=== PATIENT | female | born 1965 | race Caucasian/White ===

== ENCOUNTER 2017-08-08 11:22 | Emergency (ER) | payer OTHER, MEDICAID ==
[~2017-08-08] VITALS: Ht 165.1 cm; Wt 111.1 kg
[~2017-08-08 11:22] MED LIST: ALDACTONE50 MG; CELEXA 20 MG TA20 M1 PO; CLONAZEPAM PO; COREG25 MG PO; CYMBALTA60 MG PO; DULOXETINE HCL60 MG PO; FLEXERIL PO; HYDROXYZINE HCL25 M1 PO; IBUPROFEN 800800 M1; IBUPROFEN 800800 M1 PO; IBUPROFEN 800800 MG PO; MAXZIDE-25 MG1 EACH PO; MOBIC7.5 MG PO; NORCO 5-325 TA1 EACH PO; PENICILLIN V P500 MG PO; POTASSIUM SUPP; PREDNISONE 20 M20 MG PO; PROAIR HFA8.5 GM INH; SPIRONOLACTONE50 MG; TRANSDERM-SCO1 PATC1 TD; TRIAMTERENE-HC1 EAC3; ULTRAM 50MG TAB50 MG PO; VITAMIN D1000 UNI1; ZANAFLEX4 MG PO; ZESTORETIC 20-1 EAC1 PO; [UNRECOGNIZED DRUG - OTHER]
[2017-08-08] MEDS ORDERED: NAPROSYN500 MG PO (12:49)
[2017-08-08] MEDS ORDERED: HYDROCODONE-AP1 EAC6 PO (12:49)
[2017-08-08 13:15] VITALS: BP 144/82
== END 2017-08-08 13:28 | disposition home or self-care (01) ==
LOC: M.ERS 11:22
DX: R51 Headache (principal); M54.2 Cervicalgia; M54.5 Low back pain; I10 Essential (primary) hypertension; G89.29 Other chronic pain; F17.210 Nicotine dependence, cigarettes, uncomplicated; Z98.890 Other specified postprocedural states; Z91.040 Latex allergy status

== ENCOUNTER 2018-08-20 20:38 | Emergency (ER) | payer OTHER, MEDICAID ==
[~2018-08-20] VITALS: Ht 165.1 cm; Wt 143.1 kg
[~2018-08-20 20:38] MED LIST changes: +HYDROCODONE-AP1 EAC6 PO; +NAPROSYN500 MG PO
[2018-08-20 21:13] LABS: ABSOLUTE EOSINOPHILS 0.3 thou/uL (0.0-0.7); ABSOLUTE LYMPHOCYTES 2.1 thou/uL (0.8-5.3); ABSOLUTE MONOCYTES 0.6 thou/uL (0.0-1.2); ABSOLUTE NEUTROPHILS 4.3 thou/uL (1.6-8.1); BASOPHILS 0.6 %; EOSINOPHILS 4.2 %; HEMATOCRIT 40.9 % (37.0-47.0); HEMOGLOBIN 13.8 gm/dL (12.0-15.0); LYMPHOCYTES 28.3 %; MCH 31.4 pg (26.0-34.0); MCHC 33.6 g/dL (28.0-37.0); MCV 93.3 fL (80.0-100.0); MONOCYTES 8.2 %; MPV 7.5 fl. (7.2-11.1); NUCLEATED RBCS 0 /100WBC; PLATELET COUNT* 250 thou/uL (150-400); POLYS 58.7 %; RBC 4.38 mil/uL (4.20-5.00); RDW-CV 12.9 % (10.5-14.5); WBC 7.3 thou/uL (4.0-11.0)
[2018-08-20 21:24] LABS: APTT 29.4 Seconds (25.0-31.3); CALCIUM 9.1 mg/dL (8.5-10.1); CREATININE 1.1 mg/dL (0.6-1.3); POTASSIUM 3.5 mmol/L (3.5-5.1); PROTIME 10.7 Seconds (9.20-11.50)
[2018-08-20 21:28] LABS: ALBUMIN 3.7 g/dL (3.4-5.0); TOTAL BILIRUBIN 0.5 mg/dL (<0.1-1.0)
[2018-08-20 21:55] LABS: URINE BILIRUBIN NEGATIVE (Negative); URINE BLOOD NEGATIVE (Negative); URINE CLARITY CLEAR; URINE COLOR YELLOW; URINE GLUCOSE-RANDOM NEGATIVE (Negative); URINE KETONES NEGATIVE (Negative); URINE LEUKOCYTES-REFLEX NEGATIVE (Negative); URINE NITRITE-REFLEX NEGATIVE (Negative); URINE PROTEIN NEGATIVE (Negative); URINE SPECIFIC GRAVITY 1.025 (1.005-1.030); URINE UROBILINOGEN 0.2 E.U./dl (0.2-1.0)
[2018-08-20] MEDS ORDERED: VENTOLIN HFA 1818 GM INH (22:03)
[2018-08-20] MEDS ORDERED: ZESTORETIC 20-1 EAC2 PO (22:03)
[2018-08-20] MEDS ORDERED: ZPAK PO (22:03)
[2018-08-20] MEDS ORDERED: TESSALON PERLE100 MG PO (22:03)
[2018-08-20] MEDS ORDERED: PREDNISONE50 MG PO (22:03)
[2018-08-20] MEDS ORDERED: COREG25 MG PO (22:03)
[2018-08-20 22:16] VITALS: BP 141/76
--- NOTE | 2018-08-21 09:36 | EKG ---
[place] [address] ELECTROCARDIOGRAM REPORT Name: UMESH YANES Room: [facility]#: [id number] Admission: 08/20/18 Attend Phys: Discharge: 08/20/18 Date of : 63 Report #: [id number] THIS REPORT FOR: //name// [facility] ED Test Date: 2018-08-20 Test Time: 20:55:16 Pat Name: UMESH YANES Department: Room: Gender: F [employer] Winder: JALIL : 1965 Requested By: Nahomy Mcknight Order Number: [id number] MD: Lucas Majano Measurements Intervals [place] Rate: 67 P: 51 IN: 188 QRS: 16 QRSD: 104 T: 38 QT: 409 QTc: 432 Interpretive Statements Sinus rhythm Borderline T abnormalities, anterior leads Compared to ECG 04/07/2007 11:30:14 no change Electronically Signed On 08-21-2018 9:36:24 [employer] by Lucas Majano [email or web address] <ELECTRONICALLY SIGNED> By: Lucas Majano MD, [facility] 08/21/18 0936 54 54 Lucas Majano MD, FACC /EPI
== END 2018-08-20 22:19 | disposition home or self-care (01) ==
LOC: M.ERS 20:38
PROVIDERS: Nurse Practitioner Family
DX: J18.9 Pneumonia, unspecified organism (principal); I10 Essential (primary) hypertension; Z76.0 Encounter for issue of repeat prescription; F17.210 Nicotine dependence, cigarettes, uncomplicated; M54.9 Dorsalgia, unspecified; G89.29 Other chronic pain; Z91.040 Latex allergy status; Z98.890 Other specified postprocedural states

== ENCOUNTER 2019-10-07 19:22 | Emergency (ER) | payer OTHER, MEDICAID ==
[~2019-10-07] VITALS: Ht 165.1 cm; Wt 133.8 kg
[~2019-10-07 19:22] MED LIST changes: +LASIX 20 MG TAB20 MG PO; +LIPITOR40 MG PO; +NEURONTIN 300300 M1 PO; +PREDNISONE50 MG PO; +TESSALON PERLE100 MG PO; +TOVIAZ4 M1 PO; +VENTOLIN HFA 1818 GM INH; +VOLTAREN GEL 1100 G1 TOP; +ZESTORETIC 20-1 EAC2 PO; +ZPAK PO
[2019-10-07 20:34] LABS: INFLUENZA A ANTIGEN Negative (Negative); INFLUENZA B ANTIGEN Negative (Negative)
[2019-10-07] MEDS ORDERED: PREDNISONE 10 M10 M1 PO (21:18)
[2019-10-07] MEDS ORDERED: DICLOFENAC SOD50 M1 PO (21:18)
[2019-10-07] MEDS ORDERED: VENTOLIN HFA INH8 GM INH (21:18)
[2019-10-07 21:42] VITALS: BP 130/70
--- NOTE | 2019-10-08 10:40 | EKG ---
[place] [address] ELECTROCARDIOGRAM REPORT Name: UMESH YANES Room: [facility]#: [id number] Admission: 10/07/19 Attend Phys: Discharge: 10/07/19 Date of : 63 Date of Service: 10/07/192005 Report #: [id number] THIS REPORT FOR: //name// [facility] ED Test Date: 2019-10-07 Test Time: 20:06:35 Pat Name: UMESH YANES Department: Room: Gender: F Fire Boss: [facility] : 1965 Requested By: Lashawn Hopper Order Number: [id number] MD: Lucas Majano Measurements Intervals [place] Rate: 79 P: 50 [place]: 183 QRS: 23 QRSD: 101 T: 60 QT: 382 QTc: 438 Interpretive Statements Sinus rhythm Abnormal T, consider ischemia, anterior leads Compared to ECG 08/20/2018 20:55:16 T-wave abnormality still present Electronically Signed On 10-08-2019 10:39:33 CDT by Lucas Majano [email or web address] <ELECTRONICALLY SIGNED> By: Lucas Majano MD, FACC 10/08/19 1039 05 05 Lucas Majano MD, [facility] /EPI
== END 2019-10-07 21:43 | disposition home or self-care (01) ==
LOC: M.ERS 19:22
PROVIDERS: Nurse Practitioner
DX: B34.9 Viral infection, unspecified (principal); G89.29 Other chronic pain; I10 Essential (primary) hypertension; F17.210 Nicotine dependence, cigarettes, uncomplicated; Z91.040 Latex allergy status; Z98.890 Other specified postprocedural states

== ENCOUNTER 2020-08-26 16:06 | Inpatient (IN) | payer OTHER, MEDICAID ==
[~2020-08-26] VITALS: Ht 165.1 cm; Wt 150.5 kg
[~2020-08-26 16:06] MED LIST changes: +DICLOFENAC SOD50 M1 PO; -NEURONTIN 300300 M1 PO; +NEURONTIN 300M300 M2 PO; +PREDNISONE 10 M10 M1 PO; +VENTOLIN HFA INH8 GM INH
[2020-08-26 16:07] VITALS: BP 116/71
[2020-08-26 16:40] LABS: ABSOLUTE BASOPHILS 0.1 thou/uL (0.0-0.2); ABSOLUTE EOSINOPHILS 0.1 thou/uL (0.0-0.7); ABSOLUTE LYMPHOCYTES 1.4 thou/uL (0.8-5.3); ABSOLUTE MONOCYTES 0.7 thou/uL (0.0-1.2); ABSOLUTE NEUTROPHILS 8.9 thou/uL (1.6-8.1); BASOPHILS 0.5 %; EOSINOPHILS 0.7 %; HEMATOCRIT 43.4 % (37.0-47.0); HEMOGLOBIN 14.4 gm/dL (12.0-15.0); LYMPHOCYTES 12.6 %; MCH 30.2 pg (26.0-34.0); MCHC 33.1 g/dL (28.0-37.0); MCV 91.1 fL (80.0-100.0); MONOCYTES 6.2 %; MPV 7.2 fl. (7.2-11.1); NUCLEATED RBCS 0 /100WBC; PLATELET COUNT* 264 thou/uL (150-400); RBC 4.76 mil/uL (4.20-5.00); RDW-CV 13.7 % (10.5-14.5); WBC 11.1 thou/uL (4.0-11.0)
[2020-08-26 16:54] LABS: APTT 27.3 Seconds (25.0-31.3); PROTIME 10.6 Seconds (9.20-11.50)
[2020-08-26 17:01] LABS: CALCIUM 8.8 mg/dL (8.5-10.1); POTASSIUM 3.8 mmol/L (3.5-5.1)
[2020-08-26 17:05] LABS: ALBUMIN 3.4 g/dL (3.4-5.0); TOTAL BILIRUBIN 0.4 mg/dL (<0.1-1.0); TOTAL PROTEIN 7.1 g/dL (6.4-8.2)
[2020-08-26 18:16] VITALS: BP 141/90
[2020-08-26 18:42] VITALS: BP 143/81
[2020-08-26] MEDS ORDERED: CARVEDILOL25 MG PO (18:59)
[2020-08-26] MEDS ORDERED: TIZANIDINE HCL4 M1 PO (18:59)
[2020-08-26] MEDS ORDERED: LISINOPRIL-HCT1 EAC2 PO (19:00)
[2020-08-26] MEDS ORDERED: MOBIC7.5 MG PO (19:01)
[2020-08-26] MEDS ORDERED: CYMBALTA30 MG PO (19:02)
[2020-08-26] MEDS ORDERED: NEURONTIN300 MG PO (19:02)
[2020-08-26] MEDS ORDERED: LASIX 20 MG TAB20 MG PO (19:03)
[2020-08-26] MEDS ORDERED: LIPITOR40 MG PO (19:03)
[2020-08-26] MEDS ORDERED: TOVIAZ4 M1 PO (19:03)
[2020-08-26] MEDS ORDERED: SPIRONOLACTONE25 MG PO (19:04)
[2020-08-26 19:15] VITALS: BP 106/85
[2020-08-27 01:02] VITALS: BP 95/49
[2020-08-27 05:15] LABS: HEMATOCRIT 41.4 % (37.0-47.0); HEMOGLOBIN 13.6 gm/dL (12.0-15.0); MCHC 32.7 g/dL (28.0-37.0); MCV 91.6 fL (80.0-100.0); RBC 4.52 mil/uL (4.20-5.00); RDW-CV 13.8 % (10.5-14.5); WBC 11.1 thou/uL (4.0-11.0)
[2020-08-27 05:17] LABS: CALCIUM 9.1 mg/dL (8.5-10.1); POTASSIUM 3.9 mmol/L (3.5-5.1)
[2020-08-27 05:52] VITALS: BP 100/55
[2020-08-27 07:42] VITALS: BP 124/75
[2020-08-27 11:30] VITALS: BP 146/73
--- NOTE | 2020-08-27 12:45 | CON ---
[address] [address] CONSULTATION Name: UMESH YANES Room: [address] IN .R.#: [id number] Admission: 08/26/20 Attend Phys: Michelle Yeh MD Discharge: Date of : 63 Report #: [id number] THIS REPORT FOR: cc: Stephenie AGUERO A DO ~ Biggs, F. Douglas MD [facility] CARDIOLOGY CONSULTATION HISTORY OF PRESENT ILLNESS: I was asked by Dr. Yeh to see this 55-year-old white female in cardiology consultation for evaluation and treatment of paroxysmal supraventricular tachycardia with chest pain and troponin elevation. This lady has been having episodes of tachycardia associated with substernal chest pain for 3 months. She stopped taking her beta-brandon 3 months ago. She was on carvedilol 25 mg b.i.d. for her blood pressure. She finally had a very severe episode yesterday starting at 11:00 a.m. and finally came to the Emergency Room around 4:00 p.m. The pain lasted that length of time. She did get adenosine for her paroxysmal supraventricular tachycardia given by EMS in the ambulance. It broke her promptly. She has not had any further PSVT. Her chest discomfort was substernal. It was a 9 on a scale of 10. It was a pressure or tightness. It radiated to both her left and right shoulders. There was associated shortness of breath, nausea and diaphoresis. It was worse with activity she said, but not necessarily better at rest. It did occur at rest. She apparently says it was relieved by nitroglycerin, but I do not know that she got nitro. There was no relationship to food. She does have chronic dyspnea on exertion, orthopnea, PND and edema and shortness of breath. She has had some syncopal episodes typically when she is standing up, walking. She is on lisinopril and hydrochlorothiazide and I suspect she has orthostatic hypotension from that. Additionally, she is on spironolactone. So, she may need her medications adjusted to something that does not cause as much orthostasis. Something like amlodipine may be better for her than lisinopril. She does have chronic dyspnea on exertion, orthopnea and PND as previously mentioned. Coronary risk factors include past history of smoking. She does have hypercholesterolemia. She is on a statin, but she has not been taking it. She denies diabetes. She does have the high blood pressure. There is a strong family history of coronary artery disease. She does not have renal disease. She does not have peripheral vascular disease as far as she knows. She does have pain in her legs when she walks; however, but is not clearly claudication. She is quite obese. MEDICATIONS: Atorvastatin 40 mg daily, carvedilol 25 mg b.i.d., Cymbalta 30 mg b.i.d., Toviaz 4 mg daily, Lasix 20 mg t.i.d., Neurontin 300 mg t.i.d., lisinopril/hydrochlorothiazide 20/25 one daily, meloxicam 7.5 mg daily, spironolactone 25 mg daily and tizanidine 4 mg q.i.d. ALLERGIES: HER ONLY ALLERGY IS LATEX ALLERGY. SHE HAS [place] [address] CONSULTATION Name: UMESH YANES Room: [address] IN [facility].#: [id number] Admission: 08/26/20 Attend Phys: Michelle Yeh MD Discharge: Date of : 63 Report #: [id number] FAMILY HISTORY: Extremely positive, mother, father, sister, all had heart attacks and from them, did have several grandparents also. REVIEW OF SYSTEMS: Positive for wheezing, palpitations, chest pain, shortness of breath with exercise, seasonal allergies, latex allergy, depression, anxiety, arthritis, wearing glasses, loss of vision and decreased hearing in the left ear. Otherwise, review of systems is negative for some 35 different complaints of 14 different system categories including central nervous system, general, respiratory, cardiovascular, endocrine, gastrointestinal, hematologic, lymphatic, allergic, immunologic, psychiatric, musculoskeletal, skin, eyes, ears, nose, mouth and throat. Please see review of systems form for details and negatives in review of systems. SOCIAL HISTORY: She is . She does not smoke, drink or use illegal drugs. PHYSICAL EXAMINATION: GENERAL: She presents as a well-developed, obese woman. She is 5 feet 5 and approximately 300 pounds. VITAL SIGNS: Her pulse was 73, respirations 18, temperature 97.1, blood pressure was 100/55. HEENT: Her head is atraumatic. Eyes clear. NECK: Supple. There is no jugular venous distention or hepatojugular reflux. Thyroid is not enlarged. There is no adenopathy. SKIN: Warm and dry. Mucous membranes are moist. LUNGS: Clear to auscultation and percussion. CARDIOVASCULAR: Heart revealed normal first and second heart sound. There is a soft S4. There is no S3. There are no murmurs, rubs, thrills, heaves or gallops. PMI is nondisplaced. ABDOMEN: Soft, flat and nontender. No palpable masses or organomegaly. EXTREMITIES: Reveal no cyanosis, clubbing or edema. NEUROLOGIC: The patient was mentating normally, talking normally, moved all extremities normally. DIAGNOSTIC DATA: Her EKG shows normal sinus rhythm, left atrial enlargement and borderline T-wave abnormality that is post PSVT. I reviewed the PSVT strips and it does show PSVT converting to sinus rhythm with the adenosine. LABORATORY DATA: Chest x-ray was negative. Troponins were as follows: Initially 0.46, subsequently 1.01 and then another one about 5 hours after the first one was 1.94. Another one is pending. NT-proBNP was only 248. IMPRESSION: [place] [address] CONSULTATION Name: UMESH YANES SAW Room: [address] IN [facility]#: [id number] Admission: 08/26/20 Attend Phys: Michelle Yeh MD Discharge: Date of : 63 Report #: [id number] 1. Paroxysmal supraventricular tachycardia. 2. Chest pain that is likely ischemic pain. 3. Essential hypertension. 4. Hypercholesterolemia. 5. Elevated troponin, possible small ohn-SX-advitee elevation myocardial infarction. RECOMMENDATIONS: She should have a nuclear stress test and echo. Please see my orders. Thank you very much for asking me to see the patient. If there are any questions, please feel free to contact me. <ELECTRONICALLY SIGNED> By: Adan Griffith MD, [facility] 08/27/20 1245 1031 [id number]. Dane Griffith MD, [facility] /nt
[2020-08-27 16:00] VITALS: BP 121/73
[2020-08-27 20:00] VITALS: BP 135/74
[2020-08-28] VITALS: BP 134/75
[2020-08-28 04:00] VITALS: BP 136/78
[2020-08-28 04:47] LABS: HEMATOCRIT 41.9 % (37.0-47.0); HEMOGLOBIN 13.9 gm/dL (12.0-15.0); MCH 30.3 pg (26.0-34.0); MCHC 33.1 g/dL (28.0-37.0); MCV 91.5 fL (80.0-100.0); MPV 7.6 fl. (7.2-11.1); RBC 4.58 mil/uL (4.20-5.00); RDW-CV 13.5 % (10.5-14.5); WBC 9.5 thou/uL (4.0-11.0)
[2020-08-28 05:11] LABS: CHOLESTEROL 147 mg/dL (<200); HDL CHOLESTEROL 43 mg/dL (>40); LDL CHOLESTEROL 91 mg/dL (<100); TC:HDL 3.4 Ratio (Not establshd); TRIGLYCERIDE 69 mg/dL (<150); VLDL 14 mg/dL (<40)
[2020-08-28 05:19] LABS: SERUM ASSESSMENT Clear
[2020-08-28 05:24] LABS: CALCIUM 9.1 mg/dL (8.5-10.1); CREATININE 0.9 mg/dL (0.6-1.3); POTASSIUM 3.9 mmol/L (3.5-5.1)
[2020-08-28 08:00] VITALS: BP 141/75
[2020-08-28 16:00] VITALS: BP 108/61
--- NOTE | 2020-08-28 16:47 | 2DMMODE ---
[place] [address] 2 D/M-MODE ECHOCARDIOGRAM Name: UMESH YANES Room: [address] IN .R.#: [id number] Admission: 08/26/20 Attend Phys: Michelle Yeh MD Discharge: Date of : 63 Date of Service: 08/28/20 1647 Report #: [id number] THIS REPORT FOR: cc: Stephenie AGUERO A DO Holkins,Ankur Glover MD [facility] ~ APPROVED REPORT Study performed: 08/28/2020 10:24:15 EXAM: Comprehensive 2D, Doppler, and color-flow Echocardiogram Patient Location: In-Patient BSA: 2.43 HR: 74 bpm BP: 136/78 mmHg Other Information Study Quality: Fair Indications Chest Pain 2D Dimensions IVSd: 12.45 (7-11mm) LVOT Diam: 20.65 (18-24mm) LVDd: 46.62 mm PWd: 11.95 (7-11mm) Ascending Ao: 32.40 (22-36mm) LVDs: 26.26 (25-40mm) Aortic Root: 27.43 mm Volumes Left Atrial Volume (Systole) LA ESV Index: 10.40 mL/m2 Aortic Valve AoV Peak Tang.: 1.82 m/s AO Peak Gr.: 13.27 mmHg LVOT Max P.64 mmHg AO Mean Gr.: 7.13 mmHg LVOT Mean P.47 mmHg LVOT Max V: 1.08 m/s AO V2 VTI: 34.14 cm LVOT Mean V: 0.73 m/s TAMMIE (VTI): 2.04 cm2 LVOT V1 VTI: 20.83 cm Mitral Valve E/A Ratio: 0.71 [place] [address] 2 D/M-MODE ECHOCARDIOGRAM Name: UMESH YANES Room: [address] IN ..#: [id number] Admission: 08/26/20 Attend Phys: Michelle Yeh MD Discharge: Date of : 63 Date of Service: 08/28/20 1647 Report #: [id number] MV Decel. Time: 341.87 ms MV E Max Tang.: 0.35 m/s MV PHT: 99.14 ms MVA (PHT): 2.22 cm2 TDI E/Lateral E': 3.89 E/Medial E': 3.18 Medial E' Tang.: 0.11 m/s Lateral E' Tang.: 0.09 m/s Pulmonary Valve PV Peak Tang.: 0.97 m/s PV Peak Gr.: 3.80 mmHg Left Ventricle The left ventricle is normal size. There is normal LV segmental wall motion. Borderline concentric left ventricular hypertrophy. Left ventricular systolic function is normal. The left ventricular ejection fraction is within the normal range. LVEF is 55-60%. Grade I - abnormal relaxation pattern. Right Ventricle The right ventricle is normal size. The right ventricular systolic function is normal. Atria The left atrium size is normal. The right atrium size is normal. Aortic Valve The aortic valve is normal in structure. No aortic regurgitation is present. There is no aortic valvular stenosis. Mitral Valve The mitral valve is normal in structure. There is no mitral valve regurgitation noted. No evidence of mitral valve stenosis. Tricuspid Valve The tricuspid valve is normal in structure. There is no tricuspid valve regurgitation noted. Pulmonic Valve The pulmonary valve is normal in structure. There is no pulmonic valvular regurgitation. Great Vessels The aortic root is normal in size. IVC is [place] [address] 2 D/M-MODE ECHOCARDIOGRAM Name: UMESH YANES Room: [address] IN [facility]#: [id number] Admission: 08/26/20 Attend Phys: Michelle Yeh MD Discharge: Date of : 63 Date of Service: 08/28/20 1647 Report #: [id number] collapses >50% with inspiration. Pericardium There is no pericardial effusion. <Conclusion> The left ventricle is normal size. Borderline concentric left ventricular hypertrophy. Left ventricular systolic function is normal. The left ventricular ejection fraction is within the normal range. LVEF is 55-60%. Grade I - abnormal relaxation pattern. The right ventricle is normal size. The left atrium size is normal. The aortic valve is normal in structure. The mitral valve is normal in structure. The tricuspid valve is normal in structure. IVC is normal in size and collapses >50% with inspiration. There is no pericardial effusion. There is normal LV segmental wall motion. <ELECTRONICALLY SIGNED> By: Ankur Capps MD, FACC 08/28/20 164 164 46 Ankur Capps MD, FACC /INF
--- NOTE | 2020-08-28 17:01 | EKG ---
[place] [address] ELECTROCARDIOGRAM REPORT Name: UMESH YANES Room: [address] ADM IN ..#: [id number] Admission: 08/26/20 Attend Phys: Michelle Yeh MD Discharge: Date of : 63 Date of Service: 08/26/20 [facility]2 Report #: [id number] THIS REPORT FOR: //name// [facility] ED Test Date: 2020-08-26 Test Time: 16:12:27 Pat Name: UMESH YANES Department: Room: [facility] Gender: F C Python Developer: LAINEY : 1965 Requested By: Stas Barrientos Order Number: [id number] MD: Ankur Capps Measurements Intervals [place] Rate: 91 P: 62 [place]: 179 QRS: 39 QRSD: 100 T: 53 QT: 349 QTc: 430 Interpretive Statements Sinus rhythm Probable left atrial enlargement Borderline repolarization abnormality Compared to ECG 10/07/2019 20:06:35 T-wave abnormality no longer present Possible ischemia no longer present Electronically Signed On 08-28-2020 17:01:05 HIDE SALTER by Ankur Capps [email or web address] <ELECTRONICALLY SIGNED> By: Ankur Capps MD, [facility] 08/28/20 1701 1612 1612 Ankur Capps MD, [facility] /EPI
[2020-08-28 20:00] VITALS: BP 116/71
[2020-08-29] VITALS: BP 141/95
[2020-08-29 04:00] VITALS: BP 149/93
[2020-08-29 04:34] LABS: HEMOGLOBIN 14.6 gm/dL (12.0-15.0); MCH 30.5 pg (26.0-34.0); MCV 89.9 fL (80.0-100.0); MPV 7.8 fl. (7.2-11.1); RBC 4.78 mil/uL (4.20-5.00); RDW-CV 13.7 % (10.5-14.5); WBC 10.4 thou/uL (4.0-11.0)
[2020-08-29 05:19] LABS: CALCIUM 9.7 mg/dL (8.5-10.1); POTASSIUM 3.7 mmol/L (3.5-5.1); TROPONIN-I LEVEL 0.26 ng/mL (<0.06)
[2020-08-29 08:00] VITALS: BP 126/79
[2020-08-29 12:00] VITALS: BP 98/62
[2020-08-29] MEDS ORDERED: ASPIR 8181 MG PO (12:20)
--- NOTE | 2020-08-29 18:47 | CARDNUC ---
[place] [address] CARDIAC NUCLEAR IMAGING REPORT Name: UMESH YANES Room: [address] IN [facility]#: [id number] Admission: 08/26/20 Attend Phys: Michelle Yeh MD Discharge: Date of : 63 Date of Service: 08/29/20 1847 Report #: [id number] THIS REPORT FOR: cc: Stephenie AGUERO A DO Biggs, F. Douglas MD [facility] ~ APPROVED REPORT Study performed: 08/27/2020 11:04:00 Indication: Chest pain, Dyspnea, elevated troponin, PSVT. Patient Location: In-Patient Room #: 215 Stress Tech: Jud Arnold Stress Nurse: Precious Juan RN Ht: 5 ft 5 in Wt: 326 lbs BSA: 2.43 m2 HR: 72 bpm BP: 139/74 mmHg BMI: 54.24 Rhythm: NSR Medical History Medical History: Chest pain radiate to left and right shoulders, dyspnea, PSVT, elevated troponins, [place], nausea, diaphoresis, palpitations, orthopnea, PND, LE edema, HX syncope, lightheadedness/dizziness, unbalanced gait, HTN, HLD, past smoker, obesity, ringing in ears bilaterally. Medications: Aspirin, Carvedilol, HCTZ, Lisinopril, Atorvastatin, Spironolactone, Home meds include Lasix. Allergies: latex Cardiac Risk Factors: Age, Hyperlipidemia, HTN, Tobacco History (Former), FHX of CAD, elevated troponins, PSVT, SOB, obesity. Previous Cardiac Procedures: None Pretest Chest Pain Characteristics: None Exercise History: Indeterminate Physical Disabilities: Unbalanced gait, lightheaded, dizzy, HX of syncope. Meds Held (24 hrs): Carvedilol Resting Data Rest SPECT myocardial perfusion imaging was performed in supine position 30 minutes following the intravenous injection of 32.9 mCi of Tc-99m [place] [address] CARDIAC NUCLEAR IMAGING REPORT Name: UMESH YANES Room: [address]#: [id number] Admission: 08/26/20 Attend Phys: Michelle Yeh MD Discharge: Date of : 63 Date of Service: 08/29/20 1847 Report #: [id number] Time of rest injection: 08:00 Date: 08/29/2020 The images were gated to evaluate regional wall motion and calculate left ventricular ejection fraction. Administration Route: Straight Stick Administration Site: Right Arm Pharmacologic Stress Pharmacologic stress test was performed by injecting Regadenoson 0.4 mg IV push over 10-15 seconds immediately followed by the intravenous injection of 30.1 mCi of Tc-99m Sestamibi. Time of stress injection: 11:00 Date: 08/28/2020 Administration Route: IV Heart Rate at time of stress injection: 103 bpm. Gated Stress SPECT was performed 45 minutes after stress injection. The images were gated to evaluate regional wall motion and calculate left ventricular ejection fraction. Stress Test Details Stress Test: Pharmacologic stress testing performed using 0.4 mg of regadenoson per 5 mL given IV over 10 seconds. Reason for pharmacologic stress test: unbalanced, dizzy/lightheaded. HR Max Heart Rate (APMHR): 164 bpm Resting HR: 72 bpm Target HR (85% APMHR): 139 bpm Max HR Achieved: 103 bpm % of APMHR: 62 Recovery HR: 82 bpm HR response to stress: Normal HR response to stress BP Resting BP: 139/74 mmHg Max BP: 136/71 mmHg Recovery BP: 147/85 mmHg BP response to stress: Normal blood pressure response to stress. ECG Resting ECG: Sinus Rhythm, nonspecific ST-T abnormalities Stress ECG: Sinus Rhythm, nonspecific ST-T abnormalities ST Change: None Arrhythmia: None Recovery ECG: Sinus Rhythm, nonspecific ST-T abnormalities Recovery ST Change: [place] [address] CARDIAC NUCLEAR IMAGING REPORT Name: UMESH YANES Room: [address]#: [id number] Admission: 08/26/20 Attend Phys: Michelle Yeh MD Discharge: Date of : 63 Date of Service: 08/29/20 1847 Report #: [id number] Recovery Arrhythmia: None Clinical Reason for Termination: Completed protocol Stress Symptoms: Chest pain 8/10, lightheaded/dizzy, headache, blurred vision, dyspnea. Exercise duration: 00 min 00 sec Exercise capacity: 1.00 METs Nurse Comments A 55 year old female inpatient presented for a sitting Lexiscan r/t radiating chest pain, dyspnea, nausea, diaphoresis, palpitations, PSVT and elevated troponins. Test well tolerated. Recovery unremarkable. Patient was stable and stated she felt good when escorted via wheelchair to Nuclear Medicine for imaging. Stress ECG Conclusion Clinically suspicious for ischemia. The stress EKG was nondiagnostic due to heart rate there was inadequate to exclude ischemia Study Quality Study: Good Artifact: Mild Diaphragmatic artifact Lung Uptake: Normal Study Data At rest, the left ventricular ejection fraction was 72%.. Post stress, the left ventricular ejection was 68%.. SSS: For SRS: 5 SDS: -1 TID = 1.25. Note that the 3 times daily on the Note that theTID on the [place] program was 1.34 Perfusion The resting study demonstrated a small mild inferior defect. The post-rest images demonstrate a small mild inferior defect. There are no reversible defects seen there is no rob evidence of ischemia. Prone images were not obtained. The elevated 3 times daily seen both on the [facility] program and the [place] program is suspicious for global ischemia however. The drop [place] [address] CARDIAC NUCLEAR IMAGING REPORT Name: UMESH YANES Room: [address] IN M.R.#: [id number] Admission: 08/26/20 Attend Phys: Michelle Yeh MD Discharge: Date of : 63 Date of Service: 08/29/201846 Report #: [id number] is also suspicious for ischemia. Images were reviewed using walkby. Wall Motion Normal left ventricular wall motion. Nuclear Conclusion ECG Findings: non-diagnostic Clinical Findings: ischemic Nuclear Findings: equivocal Exercise Capacity: not assessed Left Ventricular Function: normal Risk Study: moderate The elevated 3 times daily The elevated transient ischemic dilatation factor seen here as well as the drop in ejection fraction at rest and the clinical response to a Izabel is suspicious for ischemia. Further study should be considered. <Conclusion> Clinically suspicious for ischemia. The stress EKG was nondiagnostic due to heart rate there was inadequate to exclude ischemia <ELECTRONICALLY SIGNED> By: Adan Griffith MD, [facility] 08/29/201846 46 46 Adan Griffith MD, FACC /INF
[2020-08-29 20:00] VITALS: BP 113/68
[2020-08-30 00:11] VITALS: BP 97/67
[2020-08-30 04:00] VITALS: BP 100/55
[2020-08-30 08:00] VITALS: BP 106/77
[2020-08-30] MEDS ORDERED: NITROGLYCERIN0.4 MG SUBLING (10:09)
[2020-08-30 11:30] VITALS: BP 106/77
[2020-08-30 11:51] VITALS: BP 103/58
[2020-08-30 15:55] VITALS: BP 106/77
== END 2020-08-30 14:05 | disposition home or self-care (01) | DRG 309 ==
LOC: M.ERS 16:06 → M.TBA-ER 17:19 → M.2W 17:19
PROVIDERS: Emergency Medicine Emergency Medical Services; Internal Medicine; ADMIT Family Medicine; ATTEND Family Medicine
DX: I47.1 Supraventricular tachycardia (principal); I10 Essential (primary) hypertension; G89.29 Other chronic pain; M54.9 Dorsalgia, unspecified; E78.00 Pure hypercholesterolemia, unspecified; E66.01 Morbid (severe) obesity due to excess calories; E78.5 Hyperlipidemia, unspecified; N32.9 Bladder disorder, unspecified; Z79.82 Long term (current) use of aspirin; Z91.040 Latex allergy status; Z82.49 Family history of ischemic heart disease and other diseases of the circulatory system; Z91.14 Patient's other noncompliance with medication regimen; Z68.43 Body mass index [BMI] 50.0-59.9, adult; Z79.899 Other long term (current) drug therapy

== ENCOUNTER → 2020-09-05 | Outpatient (CLI) | payer OTHER, MEDICAID ==
[2020-09-05] VITALS (9 sets, daily range): BP systolic 111–144; BP diastolic 54–79
[~2020-09-05] VITALS: Ht 165.1 cm; Wt 138.3 kg
[~2020-09-05] MED LIST changes: +ASPIR 8181 MG PO; +CARVEDILOL25 MG PO; +CYMBALTA30 MG PO; +LISINOPRIL-HCT1 EAC2 PO; +NEURONTIN300 MG PO; +NITROGLYCERIN0.4 MG SUBLING; +SPIRONOLACTONE25 MG PO; +TIZANIDINE HCL4 M1 PO
[2020-09-05 11:57] LABS: MPV 8.1 fl. (7.2-11.1); WBC 10.6 thou/uL (4.0-11.0)
[2020-09-05 11:59] LABS: HEMATOCRIT 46.7 % (37.0-47.0); HEMOGLOBIN 15.7 gm/dL (12.0-15.0); MCH 30.5 pg (26.0-34.0); MCHC 33.6 g/dL (28.0-37.0); MCV 90.8 fL (80.0-100.0); RBC 5.15 mil/uL (4.20-5.00); RDW-CV 13.5 % (10.5-14.5)
[2020-09-05 12:04] LABS: ANION GAP 11 mmol/L (7-16); BUN 23 mg/dL (7-18); CALCIUM 8.9 mg/dL (8.5-10.1); CHLORIDE 102 mmol/L (98-107); CO2 28 mmol/L (21-32); CREATININE 1.1 mg/dL (0.6-1.3); GLUCOSE 125 mg/dL (70-99); POTASSIUM 4.1 mmol/L (3.5-5.1); SODIUM 141 mmol/L (136-145)
[2020-09-05 12:06] LABS: APTT 27.8 Seconds (25.0-31.3); PROTIME 10.8 Seconds (9.20-11.50)
[2020-09-05 12:09] LABS: ALBUMIN 4.2 g/dL (3.4-5.0); ALKALINE PHOSPHATASE 111 U/L (46-116); SERUM ASSESSMENT Clear; SGOT 17 U/L (15-37); SGPT 26 U/L (30-65); TOTAL BILIRUBIN 0.5 mg/dL (<0.1-1.0); TOTAL PROTEIN 8.2 g/dL (6.4-8.2)
[2020-09-05 12:20] LABS: CHOLESTEROL 132 mg/dL (<200); HDL CHOLESTEROL 47 mg/dL (>40); LDL CHOLESTEROL 66 mg/dL (<100); TC:HDL 2.8 Ratio (Not establshd); TRIGLYCERIDE 99 mg/dL (<150); VLDL 20 mg/dL (<40)
--- NOTE | 2020-09-05 13:18 | EKG ---
[place] [address] ELECTROCARDIOGRAM REPORT Name: FARZANAUMESHStephenie SPRING Room: [facility]#: [id number] Admission: 09/05/20 Attend Phys: Adan Griffith, Discharge: Date of : 63 Date of Service: 09/05/20 1221 Report #: [id number] THIS REPORT FOR: //name// [facility] Test Date: 2020-09-05 Test Time: 12:21:18 Pat Name: UMESH YANES Department: Room: Gender: F Tool Smith: : 1965 Requested By: Linus Durand Order Number: [id number] MD: Lucas Majano Measurements Intervals [place] Rate: 71 P: 61 [place]: 176 QRS: 24 QRSD: 103 T: 49 QT: 385 QTc: 419 Interpretive Statements Sinus rhythm Consider right atrial enlargement Borderline T abnormalities, anterior leads No previous ECG available for comparison Electronically Signed On 09-05-2020 13:18:38 MAINTENANCE TECH by Lucas Majano [email or web address] <ELECTRONICALLY SIGNED> By: Lucas Majano MD, [facility] 09/05/20 1318 122 20 Lucas Majano MD, [facility] /EPI
--- NOTE | 2020-09-07 14:32 | CARD ---
[address] [address] CARDIAC CATH REPORT Name: UMESH YANES Room: [facility]#: [id number] Admission: 09/05/20 Attend Phys: Adan Griffith MD, Discharge: Date of : 63 Report #: [id number] THIS REPORT FOR: cc: Stephenie AGUERO A DO ~ Linus Durand MD [facility] APPROVED REPORT Study performed: 09/05/2020 12:09:27 Patient Details Patient Status: Out-Patient Room #: The patient is a 55 year-old female Event Personnel Linus Durand Stroboroma Operator, Jazzmine Quigley RN Printing Sign Machine Operator, Thomas Mack RTR Scrub, Lucero Abbott RTR Monitor Procedures Performed Art Access - R radial artery , Left Heart Cath w/or w/o Coronaries LHC , Hemostasis with Hemoband Admission/Lab Medications/Medications given during procedure Nitroglycerin IA 400 mcg total, Verapamil IA 5 mg total, Nitroglycerin IC 200 mcg, Nitroglycerin SL 0.4 mg Procedure Narrative The patient was brought electively to the Cardiac Catheterization Laboratory and was prepped and draped in a sterile manner. The right wrist was infiltrated with 2% Lidocaine subcutaneous anesthesia. A 6F Slender [place] sheath was inserted into the right radial artery. Coronary angiography was performed using coronary diagnostic catheters. The right coronary system was accessed and visualized with a 6F Alf Radial catheter. The left coronary system was accessed and visualized with a 6F Alf Radial catheter. The left ventricle was accessed and visualized with a 6F Pigtial catheter. Left ventricular/Aortic Valve gradient assessed via catheter pullback. Left ventriculogram was performed in [place] projection. Closure device was deployed with a 6 Fr Radial Vasc band. The patient tolerated the procedure well and there were no complications associated with the procedure. There was no hematoma. Intra[place] [address] CARDIAC CATH REPORT Name: UMESH YANES Room: [facility]#: [id number] Admission: 09/05/20 Attend Phys: Adan Griffith MD, Discharge: Date of : 63 Report #: [id number] Sedation start time: 12:54 Case end Time: 13:11 Fentanyl 25 mcg Versed 1 mg Fluoro Time: 3.6 minutes Dose: DAP 33016 cGycm2 1612 mGy Contrast Type and Amount: Visipaque 110 ml Diagnostic Cath Left Main The left main coronary artery is normal and bifurcates into left anterior descending and circumflex coronary artery. LAD The left anterior descending coronary artery has moderate 50% narrowing in the midportion of the vessel. Diagonal 1 The first diagonal has 30% proximal narrowing. Diagonal 2 A bifurcated second diagonal was normal. Diagonal 3 A moderate-sized third diagonal was normal. Circumflex The circumflex coronary artery is normal in its proximal mid and distal portion. OM1 The first obtuse marginal branch is normal. OM2 The second obtuse marginal branch is normal. OM3 A bifurcated third obtuse marginal branch is normal. Right Coronary The right coronary artery has 20% narrowing proximally and 10% narrowing in the midportion. R PDA The PDA is normal. RPLV The right posterior lateral branch is normal. Left Ventriculography The left ventricle is normal in size with normal contractility. The left ventricular ejection fraction is estimated to be 65-70%. Hemodynamics The aortic pressure is 115/77 mmHg with a mean of 94 mmHg. The left ventricular pressure is 119/7 mmHg with a mean of mmHg. The left ventricular end diastolic pressure is 8 mmHg. Conclusion 1. Minimal coronary artery plaquing as outlined above. 2. Normal left ventricular systolic function. 3. Normal left ventricular end-diastolic [place] [address] CARDIAC CATH REPORT Name: UMESH YANES Room: [facility]#: [id number] Admission: 09/05/20 Attend Phys: Adan Griffith MD, Discharge: Date of : 63 Report #: [id number] 1. Continue medical management and aggressive risk factor modification. <ELECTRONICALLY SIGNED> By: Linus Durand MD, [facility] 09/07/20 1432 1432 [facility] MD, FACC /INF
== END | disposition home or self-care (01) ==
LOC: M.CL 11:24 → EDBD 13:00
PROVIDERS: Internal Medicine Cardiovascular Disease; ATTEND Internal Medicine
DX: I25.10 Atherosclerotic heart disease of native coronary artery without angina pectoris (principal); R07.89 Other chest pain; R94.39 Abnormal result of other cardiovascular function study; R06.00 Dyspnea, unspecified; I10 Essential (primary) hypertension; E78.00 Pure hypercholesterolemia, unspecified; E78.5 Hyperlipidemia, unspecified; I47.1 Supraventricular tachycardia; M19.90 Unspecified osteoarthritis, unspecified site; Z98.890 Other specified postprocedural states; Z79.899 Other long term (current) drug therapy; Z91.040 Latex allergy status; Z88.8 Allergy status to other drugs, medicaments and biological substances; Z20.822 Contact with and (suspected) exposure to COVID-19

== ENCOUNTER 2021-05-17 18:19 | Emergency (ER) | payer OTHER, MEDICAID ==
[~2021-05-17] VITALS: Ht 165.1 cm; Wt 157.8 kg
[2021-05-17] MEDS ORDERED: TOVIAZ4 M1 PO (18:32)
[2021-05-17 18:55] LABS: ABSOLUTE BASOPHILS 0.1 thou/uL (0.0-0.2); ABSOLUTE EOSINOPHILS 0.3 thou/uL (0.0-0.7); ABSOLUTE LYMPHOCYTES 1.6 thou/uL (0.8-5.3); ABSOLUTE MONOCYTES 0.5 thou/uL (0.0-1.2); ABSOLUTE NEUTROPHILS 4.9 thou/uL (1.6-8.1); BASOPHILS 0.9 %; EOSINOPHILS 3.6 %; HEMATOCRIT 41.7 % (37.0-47.0); HEMOGLOBIN 14.1 gm/dL (12.0-15.0); LYMPHOCYTES 21.6 %; MCH 30.8 pg (26.0-34.0); MCHC 33.7 g/dL (28.0-37.0); MCV 91.3 fL (80.0-100.0); MONOCYTES 6.9 %; MPV 7.2 fl. (7.2-11.1); NUCLEATED RBCS 0 /100WBC; PLATELET COUNT* 245 thou/uL (150-400); RBC 4.57 mil/uL (4.20-5.00); WBC 7.2 thou/uL (4.0-11.0)
[2021-05-17 19:07] LABS: CALCIUM 9.1 mg/dL (8.5-10.1); CREATININE 1.1 mg/dL (0.6-1.3); POTASSIUM 3.9 mmol/L (3.5-5.1)
[2021-05-17 19:18] LABS: ALBUMIN 3.5 g/dL (3.4-5.0); MAGNESIUM 2.1 mg/dL (1.8-2.4); TOTAL BILIRUBIN 0.4 mg/dL (<0.1-1.0); TOTAL PROTEIN 7.4 g/dL (6.4-8.2)
[2021-05-17 22:03] VITALS: BP 164/90
--- NOTE | 2021-05-18 11:19 | EKG ---
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 05/18/21 1118 1847 1847 Lucas Majano MD, [facility] /EPI
== END 2021-05-17 22:04 | disposition home or self-care (01) ==
LOC: M.ERS 18:19
PROVIDERS: Emergency Medicine Emergency Medical Services
DX: R07.89 Other chest pain (principal); R51.9 Headache, unspecified; R06.02 Shortness of breath; R19.7 Diarrhea, unspecified; R61 Generalized hyperhidrosis; R11.0 Nausea; I25.2 Old myocardial infarction; I10 Essential (primary) hypertension; E78.5 Hyperlipidemia, unspecified; F17.210 Nicotine dependence, cigarettes, uncomplicated; Z98.890 Other specified postprocedural states; Z79.899 Other long term (current) drug therapy; Z79.82 Long term (current) use of aspirin; Z91.040 Latex allergy status